=== PATIENT | male | born 1960 | race African-American/Black ===

== ENCOUNTER 2019-04-11 20:38 | Observation (INO) ==
[2019-04-11 21:29] LABS: Basophils % 0.5 %; Eosinophils # 0.1 K/mcL (0.0-0.6); Eosinophils % 1.5 %; Hematocrit 45.4 % (37.5-50.1); Hemoglobin 15.9 g/dL (12.9-16.9); Immature Granulocytes % 0.2 % (0-4); Lymphocytes # 2.4 K/mcL (0.6-4.6); Lymphocytes % 35.9 %; Mean Corpuscular Hemoglobin 25.5 pg (28.0-33.3); Mean Corpuscular Volume 72.8 fL (83.0-100.0); Mean Platelet Volume 9.9 fL (9.4-12.4); Monocytes # 0.5 K/mcL (0.0-1.3); Neutrophils # 3.6 K/mcL (1.6-8.9); Platelet Count 209 K/mcL (140-400); Red Blood Count 6.24 M/mcL (4.19-5.50); Red Cell Distribution Width 14.8 % (11.5-14.5); Segmented Neutrophils % 53.9 %; White Blood Count 6.6 K/mcL (4.3-11.1)
[2019-04-11] MEDS ORDERED: *HR* Labetalol 20 MG/4 ML SYRINGE IVP ONE ×2 (21:36→22:37)
[2019-04-11 21:43] LABS: INR 0.9; Prothrombin Time 10.5 Seconds (9.4-12.1)
[2019-04-11 21:45] LABS: Activated Partial Thrombo Time 35.3 Seconds (26.0-36.0)
[2019-04-11 21:56] LABS: BUN/Creatinine Ratio 17 (6-26); Blood Urea Nitrogen 20 mg/dL (6-20); Calcium 9.6 mg/dL (8.6-10.3); Carbon Dioxide 29 mEq/L (23-29); Chloride 101 mEq/L (98-107); Glucose 96 mg/dL (70-105); Osmolality,Calculated 290 (280-300); Potassium 3.8 mEq/L (3.5-5.1); Sodium 139 mEq/L (136-145); Troponin I < 0.03 ng/mL (< 0.04); eGFR For African Americans > 60 (> 60); eGFR For Non-African Americans > 60 (> 60)
[2019-04-11] MEDS ORDERED: Aspirin 325 MG TABLET PO ONE (22:38)
[2019-04-12] MEDS ORDERED: *HR* LORazepam 2 MG/ML VIAL IVP ONE (03:53)
[2019-04-12 04:48] LABS: Basophils % 0.4 %; Eosinophils # 0.1 K/mcL (0.0-0.6); Eosinophils % 1.6 %; Hematocrit 45.3 % (37.5-50.1); Hemoglobin 15.3 g/dL (12.9-16.9); Immature Granulocytes % 0.1 % (0-4); Lymphocytes # 2.8 K/mcL (0.6-4.6); Lymphocytes % 41.7 %; Mean Corpuscular HGB Conc 33.8 g/dL (31.6-35.5); Mean Corpuscular Hemoglobin 25.5 pg (28.0-33.3); Mean Corpuscular Volume 75.5 fL (83.0-100.0); Mean Platelet Volume 10.1 fL (9.4-12.4); Monocytes # 0.5 K/mcL (0.0-1.3); Monocytes % 6.6 %; Neutrophils # 3.4 K/mcL (1.6-8.9); Platelet Count 207 K/mcL (140-400); Red Cell Distribution Width 14.5 % (11.5-14.5); Segmented Neutrophils % 49.6 %; White Blood Count 6.8 K/mcL (4.3-11.1)
[2019-04-12 05:08] LABS: BUN/Creatinine Ratio 15 (6-26); Blood Urea Nitrogen 16 mg/dL (6-20); Calcium 9.7 mg/dL (8.6-10.3); Carbon Dioxide 28 mEq/L (23-29); Chloride 100 mEq/L (98-107); Chol/HDL Ratio 2.8 (0-4.9); Cholesterol 145 mg/dL (< 200); Glucose 103 mg/dL (70-105); HDL Cholesterol 52 mg/dL (40-59); LDL Cholesterol,Calculated 73 mg/dL (0-99); Osmolality,Calculated 291 (280-300); Potassium 3.5 mEq/L (3.5-5.1); Sodium 140 mEq/L (136-145); Triglycerides 100 mg/dL (< 150); eGFR For African Americans > 60 (> 60); eGFR For Non-African Americans > 60 (> 60)
[2019-04-12 05:20] LABS: Thyroid Stimulating Hormone 3.178 mcIU/mL (0.340-5.600)
[2019-04-12 05:23] LABS: Estimated Average Glucose 128 mg/dl
[2019-04-12] MEDS: *HR* OxyCODONE Immed Rel 15 MG TABLET PO SCH ×2 (05:58→12:00)
[2019-04-12] MEDS ORDERED: Regadenoson 0.4 MG/5 ML SYRINGE IVP ONE (06:04)
[2019-04-12] MEDS ORDERED: amLODIPine 5 MG TABLET PO SCH (09:00)
[2019-04-12] MEDS ORDERED: Losartan/HCTZ 50-12.5 TABLET PO SCH (09:00)
[2019-04-12 13:16] VITALS: BP 154/78
[2019-04-12] MEDS ORDERED: Ondansetron ODT 4 MG TAB.RAPDIS SL STA (13:55)
[2019-04-13] MEDS ORDERED: amLODIPine 5 MG TABLET PO SCH (09:00)
== END 2019-04-12 14:36 | disposition home or self-care (01) ==
LOC: EMEROOARM 20:38 → 3BNU 20:38
PROVIDERS: ADMIT Internal Medicine; ATTEND Internal Medicine